=== PATIENT | female | born 1960 | race Caucasian/White ===

== ENCOUNTER → 2017-05-25 | Outpatient (CLI) | payer OTHER ==
[2017-05-25 17:59] LABS: ALBUMIN/GLOBULIN RATIO 1.1 (1.0-1.7); CALCIUM 9.4 mg/dL (8.5-10.1); CREATININE 0.8 mg/dL (0.6-1.0); GFR 74.5; POTASSIUM 4.2 mmol/L (3.5-5.1); TOTAL BILIRUBIN 0.3 mg/dL (0.2-1.0); TOTAL PROTEIN 7.7 g/dL (6.4-8.2)
== END | disposition home or self-care (01) ==
LOC: SPEC 17:23
PROVIDERS: ATTEND Nurse Practitioner
DX: I10 Essential (primary) hypertension (principal)
CPT/HCPCS: 36415; 80053; 80061

== ENCOUNTER → 2018-05-05 | Outpatient (CLI) | payer OTHER ==
--- NOTE | 2018-05-05 18:27 | RAD ---
Right foot, 3 views, 05/05/2018: HISTORY: Fall, pain No foot fracture or dislocation is identified. There is a moderate inferior calcaneal spur. There is mild diffuse soft tissue swelling. IMPRESSION: No acute bony abnormality is detected. Right ankle, 3 views, 05/05/2018: There is moderate diffuse soft tissue swelling. On one of the foot views a small calcific density is seen at the tip of the lateral malleolus. The appearance suggests an avulsion fracture of indeterminate age. No other fracture or dislocation is identified. IMPRESSION: Small cortical avulsion fracture at the tip of the lateral malleolus of indeterminate age. Electronically signed by: Richie Landrum MD (05/05/2018 6:24 PM) [facility]
== END | disposition home or self-care (01) ==
LOC: RAD 11:31
PROVIDERS: ATTEND Family Medicine
DX: S82.61XA Displaced fracture of lateral malleolus of right fibula, initial encounter for closed fracture (principal); M77.31 Calcaneal spur, right foot; R22.41 Localized swelling, mass and lump, right lower limb; X58.XXXA Exposure to other specified factors, initial encounter; Y93.89 Activity, other specified; Y92.89 Other specified places as the place of occurrence of the external cause; Y99.8 Other external cause status
CPT/HCPCS: 73610; 73630

== ENCOUNTER 2018-06-03 16:38 | Emergency (ER) | payer SELFPAY ==
[~2018-06-03] VITALS: Ht 162.6 cm; Wt 86.6 kg
--- NOTE | 2018-06-03 17:02 | PHYS DOC ---
Adult General Chief Complaint Chief Complaint: FOOT INJURY PAIN [facility] HPI Patient is a 58 year old female who presents with complaining of injury to right foot and ankle while she slipped on ice and twisted her right ankle while tried to prevent of a fall. Patient denies other injuries and loss of consciousness. Patient states the accident happened pain about 2 hours ago she took Celebrex and her pain improved. Patient states she had injury to the same ankle 2 weeks ago after a fall and had unremarkable x-ray. Review of Systems Review of Systems Constitutional: Denies fever or chills [] Eyes: Denies change in visual acuity, redness, or eye pain [] HENT: Denies nasal congestion or sore throat [] Respiratory: Denies cough or shortness of breath [] Cardiovascular: No additional information not addressed in HPI [] GI: Denies abdominal pain, nausea, vomiting, bloody stools or diarrhea [] : Denies dysuria or hematuria [] Musculoskeletal: Denies back pain, reports joint pain [] Integument: Denies rash or skin lesions [] Neurologic: Denies headache, focal weakness or sensory changes [] Endocrine: Denies polyuria or polydipsia [] All other systems were reviewed and found to be within normal limits, except as documented in this note. Physical Exam Physical Exam Constitutional: Well nourished, mild distress, non-toxic appearance. [] HENT: Normocephalic, atraumatic Eyes: PERRLA, EOMI, conjunctiva normal, no discharge. [] Neck: Normal range of motion, no tenderness, supple, no stridor. [] Cardiovascular:Heart rate regular rhythm, no murmur [] Lungs & Thorax: Bilateral breath sounds clear to auscultation [] Skin: Warm, dry, no erythema, no rash. [] Back: No tenderness, no CVA tenderness. [] Extremities: Right ankle without deformity, moderate edema and tenderness in lateral malleolus with painful range of motion, no neurovascular deficit Neurologic: Alert and oriented X 3, normal motor function, normal sensory function, no focal deficits noted. [] Psychologic: Affect anxious, judgement normal, mood normal. [] EKG EKG [] Radiology/Procedures Radiology/Procedures [][address] [address] IMAGING REPORT Signed PATIENT: RAPHAEL CROWDER: [id number] : 1960 LOCATION: ER AGE: 58 SEX: F EXAM STATUS: DEP ER ORD. PHYSICIAN: AYO GARCIA MD REASON: fall PROCEDURE: ANKLE RIGHT 3V Three-view right ankle radiographs 06/03/2018 CLINICAL HISTORY: Right ankle pain post fall. AP, lateral and oblique digital radiographs of the right ankle were obtained. An acute oblique fracture of the distal diaphysis of the right femur 2.5 cm superior to inferior aspect of the lateral malleolus of the right ankle. The distal fracture fragment is minimally displaced laterally. No additional fracture is seen. Moderate enthesophyte formation is seen involving the plantar aspect of the posterior right calcaneus. IMPRESSION: Acute fracture of the distal right fibula near the lateral malleolus of the right ankle. Electronically signed by: Rajiv Fried MD (06/04/2018 12:06 AM) [facility] DICTATED AND SIGNED BY: RAJIV FRIED MD DATE: 06/03/18 2652 CC: AYO GARCIA MD; CHIDI GALLARDO ~ Course & Med Decision Making Course & Med Decision Making Pertinent Imaging studies reviewed. (See chart for details) Evaluation of patient in ER showed 58-year-old female patient with complaining of injury to right foot and ankle after twisting her ankle for prevention of fall. Patient had tenderness and edema of lateral malleolus and x-ray showed lateral malleolus fracture. Patient did not want to have pain medication at arrival to ER but later on and asking for pain medication but for giving pain medication was able to fall asleep. Posterior leg splint was applied by DIETIST with good cap refill after insertion of splint and crutches provided and patient instructed to follow-up with fashion consultant sales orthopedic physician. Rohini Disclaimer Rohini Disclaimer This electronic medical record was generated, in whole or in part, using a voice recognition dictation system. Departure Departure: Impression: Primary Impression: Fracture of right ankle, lateral malleolus Disposition: 01 HOME, SELF-CARE (at 1731) Condition: IMPROVED Referrals: CHIDI GALLARDO (PCP) Patient Instructions: Ankle Fracture Additional Instructions: Follow-up up with fashion consultant sales orthopedic physician Dr. Segundo call at [phone] to make an appointment in 2-3 days Use crutches all the time Apply ice on the affected area Follow-up with your primary care physician in 3-5 days Return to ER if not getting better Scripts Hydrocodone Bit/Acetaminophen (NORCO 5-325 TABLET) 1 Each Tablet 1 TAB PO PRN Q6HRS PRN for PAIN, #14 TAB 0 Refills Prov: AYO GARCIA MD 06/03/18 Ibuprofen (IBUPROFEN) 800 Mg Tablet 1 TAB PO TID for pain, #30 TAB Prov: AYO GARCIA MD 06/03/18 AYO GARCIA MD Jun 03, 2018 17:02
[2018-06-03] MEDS ORDERED: HYDR-3165 PO (17:35)
[2018-06-03] MEDS ORDERED: IBUP800T19 PO (17:35)
[2018-06-03] MEDS ORDERED: HYDROcodone/APAP 5/325MG 1 TAB TABLET PO ONE (17:40)
[2018-06-03 17:48] VITALS: BP 164/92
--- NOTE | 2018-06-04 00:10 | RAD ---
Three-view right ankle radiographs 06/03/2018 CLINICAL HISTORY: Right ankle pain post fall. AP, lateral and oblique digital radiographs of the right ankle were obtained. An acute oblique fracture of the distal diaphysis of the right femur 2.5 cm superior to inferior aspect of the lateral malleolus of the right ankle. The distal fracture fragment is minimally displaced laterally. No additional fracture is seen. Moderate enthesophyte formation is seen involving the plantar aspect of the posterior right calcaneus. IMPRESSION: Acute fracture of the distal right fibula near the lateral malleolus of the right ankle. Electronically signed by: Rajiv Fried MD (06/04/2018 12:06 AM) [facility]
== END 2018-06-03 17:50 | disposition home or self-care (01) ==
LOC: ER 16:38
DX: S82.61XA Displaced fracture of lateral malleolus of right fibula, initial encounter for closed fracture (principal); W00.0XXA Fall on same level due to ice and snow, initial encounter; Y93.89 Activity, other specified; Y92.89 Other specified places as the place of occurrence of the external cause; Y99.8 Other external cause status
CPT/HCPCS: 29515; 73610; 99284

== ENCOUNTER → 2018-07-21 | Outpatient (CLI) | payer OTHER ==
[~2018-07-21] MED LIST: HYDR-3165 PO; IBUP800T19 PO
--- NOTE | 2018-07-21 15:24 | RAD ---
DATE: 07/21/2018 EXAM: DIGITAL SCREEN BILAT W/CAD HISTORY: Routine screening COMPARISON: 05/25/2016 This study was interpreted with the benefit of Computerized Aided Detection (CAD). Breast Density: SCATTERED The breast parenchyma shows scattered fibroglandular densities. Breast parenchyma level B. FINDINGS: There is an unchanged smooth nodule in the anteromedial aspect of the right breast. No new or enlarging breast densities are seen. No suspicious microcalcifications are evident. IMPRESSION: Stable mammograms without evidence of malignancy. BI-RADS CATEGORY: 2 BENIGN FINDING(S) RECOMMENDED FOLLOW-UP: 12M 12 MONTH FOLLOW-UP PQRS compliance statement: Patient information was entered into a reminder system with a target due date for the next mammogram. Mammography is a sensitive method for finding small breast cancers, but it does not detect them all and is not a substitute for careful clinical examination. A negative mammogram does not negate a clinically suspicious finding and should not result in delay in biopsying a clinically suspicious abnormality. "Our facility is accredited by the [employer] Mammography Program."
== END ==
LOC: MAMMO 12:37 → EDSTATUS 13:00
PROVIDERS: ATTEND Nurse Practitioner Family
DX: Z12.31 Encounter for screening mammogram for malignant neoplasm of breast (principal)
CPT/HCPCS: 77067

== ENCOUNTER → 2019-07-25 | Outpatient (CLI) | payer OTHER ==
--- NOTE | 2019-07-26 16:36 | RAD ---
DATE: 07/25/2019 EXAM: DIGITAL SCREEN BILAT W/CAD HISTORY: Routine screening COMPARISON: 05/25/2016, 07/21/2018, 05/06/2015 mammographic exams This study was interpreted with the benefit of Computerized Aided Detection (CAD). Breast Density: SCATTERED The breast parenchyma shows scattered fibroglandular densities. Breast parenchyma level B. FINDINGS: No suspicious calcification, mass, or distortion. IMPRESSION: Stable BI-RADS CATEGORY: 1 NEGATIVE RECOMMENDED FOLLOW-UP: 12M 12 MONTH FOLLOW-UP PQRS compliance statement: Patient information was entered into a reminder system with a target due date for the next mammogram. Mammography is a sensitive method for finding small breast cancers, but it does not detect them all and is not a substitute for careful clinical examination. A negative mammogram does not negate a clinically suspicious finding and should not result in delay in biopsying a clinically suspicious abnormality. "Our facility is accredited by the [employer] Mammography Program."
== END | disposition home or self-care (01) ==
LOC: MAMMO 10:06
PROVIDERS: ATTEND Family Medicine
DX: Z12.31 Encounter for screening mammogram for malignant neoplasm of breast (principal); N64.89 Other specified disorders of breast
CPT/HCPCS: 77067

== ENCOUNTER 2020-07-22 16:19 | Emergency (ER) | payer OTHER ==
[~2020-07-22] VITALS: Ht 162.6 cm; Wt 100.0 kg
[2020-07-22 16:30] VITALS: BP 164/60
--- NOTE | 2020-07-22 16:52 | PHYS DOC ---
Past History Past Medical History: Asthma, High Cholesterol, Hypertension, Kidney Infection, Other Past Surgical History: No Surgical History Alcohol Use: None Drug Use: Marijuana General Adult EDM: Chief Complaint: KNEE SWELLING HPI: HPI: Patient is a 52-year-old female who presents with right knee pain. Patient states that she has a history of arthritis in her knee but started having an increase in pain 1 week ago. Patient denies any known injury. Pain is aggravated by ambulation. Patient's been taking Celebrex and Tylenol today with little relief. Rating pain an 8 out of 10. Patient states that she spoke with her PCP this morning, Dr. Valerio Lucas, he advised her to come to the emergency room for pain control. Patient has a follow-up appointment with him on the of this month. Patient has history of arthritis, hypertension, asthma. Review of Systems: Review of Systems: Constitutional: Denies fever or chills Eyes: Denies change in visual acuity HENT: Denies nasal congestion or sore throat Respiratory: Denies cough or shortness of breath Cardiovascular: Denies chest pain or edema GI: Denies abdominal pain, nausea, vomiting, bloody stools or diarrhea : Denies dysuria Musculoskeletal: Denies back pain, reports right knee pain and swelling Integument: Denies rash Neurologic: Denies headache, focal weakness or sensory changes Endocrine: Denies polyuria or polydipsia Lymphatic: Denies swollen glands Psychiatric: Denies depression or anxiety Allergies: Allergies: Allergies Coded Allergies Type Severity Reaction Last Updated Verified loratadine Allergy Unknown 06/03/18 Yes prednisone Allergy Unknown 06/03/18 Yes Physical Exam: PE: Constitutional: Well developed, well nourished, no acute distress, non-toxic appearance. [] HENT: Normocephalic, atraumatic, bilateral external ears normal, oropharynx moist, no oral exudates, nose normal. [] Eyes: PERRLA, EOMI, conjunctiva normal, no discharge. [] Neck: Normal range of motion, no tenderness, supple, no stridor. [] Cardiovascular:Heart rate regular rhythm, no murmur [] Lungs & Thorax: Bilateral breath sounds clear to auscultation [] Abdomen: Bowel sounds normal, soft, no tenderness, no masses, no pulsatile mass es. [] Skin: Warm, dry, no erythema, no rash. [] Back: No tenderness, no CVA tenderness. [] Extremities: Right knee tenderness, no cyanosis, no clubbing, ROM intact, no edema. [] Neurologic: Alert and oriented X 3, normal motor function, normal sensory function, no focal deficits noted. [] Psychologic: Affect normal, judgement normal, mood normal. [] EKG: EKG: [] Radiology/Procedures: Radiology/Procedures: []XAM: Right knee, 4 views. HISTORY: Pain and swelling. COMPARISON: None. FINDINGS: 4 views of the right knee are obtained. There is mild medial compartment spurring. There is no fracture, dislocation or subluxation. There is a moderate joint effusion. IMPRESSION: 1. Mild medial compartment osteoarthritis of the right knee. 2. Moderate right knee effusion. Electronically signed by: Nisha Taylor MD (07/22/2020 5:10 PM) [id number] Heart Score: Risk Factors: Risk Factors: DM, Current or recent (<one month) smoker, HTN, HLP, family history of CAD, obesity. Risk Scores: Score 0 - 3: 2.5% MACE over next 6 weeks - Discharge Home Score 4 - 6: 20.3% MACE over next 6 weeks - Admit for Clinical Observation Score 7 - 10: 72.7% MACE over next 6 weeks - Early Invasive Strategies Course & Med Decision Making: Course & Med Decision Making Pertinent Labs and Imaging studies reviewed. (See chart for details) []Patient is a 52-year-old female who presents with right knee pain. Patient states that she has a history of arthritis in her knee but started having an increase in pain 1 week ago. Patient denies any known injury. Pain is aggravated by ambulation. Patient's been taking Celebrex and Tylenol today with little relief. Rating pain an 8 out of 10. Patient states that she spoke with her PCP this morning, Dr. Valerio Lucas, he advised her to come to the emergency room for pain control. Patient has a follow-up appointment with him on the of this month. Patient has history of arthritis, hypertension, asthma. X-ray right knee ordered. Hydrocodone given for pain control. Patient reports s ome relief with pain medication in the ED. Patient will follow RICE and has a knee brace at home she will use. X-ray shows Mild medial compartment osteoarthritis of the right knee.Moderate right knee effusion. Hydrocodone ordered for pain control. Patient is following up with her PCP on the . Dragon Disclaimer: Dragmelanie Disclaimer: This electronic medical record was generated, in whole or in part, using a voice recognition dictation system. Departure Departure: Impression: Primary Impression: Right knee pain Qualified Codes: M25.561 - Pain in right knee; G89.29 - Other chronic pain Disposition: DC HOME SELF CARE/HOMELESS Condition: GOOD Referrals: LALITHA GABRIEL MD (PCP) Patient Instructions: Knee Pain, [id number] Additional Instructions: You were seen in the emergency room today for right knee pain and swelling. X- ray of your right knee was ordered. Xray showed Mild medial compartment osteoarthritis of the right knee and Moderate right knee effusion. I have written you a prescription for hydrocodone for pain relief. Written instructions for RICE. You may also take ibuprofen [id number] for added pain control. Keep your appointment with Dr. Valerio Lucas on the for further evaluation. Please return to the emergency room with worsening symptoms or concerns. EMERGENCY DEPARTMENT GENERAL DISCHARGE INSTRUCTIONS Thank you for coming to [facility] (ED) today and trusting us with you care. We trust that you had a positivie experience in our Emergency Department. If you wish to speak to the department management, you may call the director at [phone]. YOUR FOLLOW UP INSTRUCTIONS ARE FOLLOWS: 1. Do you have a private Doctor? If you do not have a private doctor, please ask for a resource list of physicians or clinics that may be able to assist you with follow up care. 2. The Emergency Physician has interpreted your x-rays. The X-Ray specialist will also review them. If there is a change in the findings, you will be notified in 48 hours when at all possible. 3. A lab test or culture has been done, your results will be reviewed and you will be notified if you need a change in treatment. ADDITIONAL INSTRUCTIONS AND INFORMATION: 1. Your care today has been supervised by a physician who is specially trained in emergency care. Many problems require more than one evaluation for a complete diagnosis and treatment. We recommend that you schedule your follow up appointment as recommended to ensure complete treatment of you illness or injury. If you are unable to obtain follow up care and continue to have a problem, or if your condition worsens, we recommend that you return to the ED. 2. We are not able to safely determine your condition over the phone nor are we able to give sound medical advice over the phone. For these safety reasons, if you call for medical advice we will ask you to come to the ED for further evaluation. 3. If you have any questions regarding these discharge instructions please call the ED at [phone]. SAFETY INFORMATION: In the interest of safety, wellness, and injury prevention; we encourage you to wear your sealbelt, if you smoke; quite smoking, and we encourage family to use a protective helmet for bicycling and other sporting events that present an increased risk for head injury. IF YOUR SYMPTOMS WORSEN OR NEW SYMPTOMS DEVELOP, OR YOU HAVE CONCERNS ABOUT YOUR CONDITION; OR IF YOUR CONDITION WORSENS WHILE YOU ARE WAITING FOR YOUR FOLLOW UP APPOINTMENT; EITHER CONTACT YOUR PRIMARY CARE DOCTOR, THE PHYSICIAN WHOSE NAME AND NUMBER YOU WERE GIVEN, OR RETURN TO THE ED IMMEDIATELY. Scripts Hydrocodone Bit/Acetaminophen (HYDROCODONE-APAP 5-325 ) 1 Each Tablet 1 TAB PO PRN Q6HRS PRN for PAIN, #20 TAB 0 Refills Prov: BETO ELAINE APRN 07/22/20 BETO ELAINE APRN Jul 22, 2020 16:52
[2020-07-22] MEDS ORDERED: HYDROcodone/APAP 5/325MG 1 TAB TABLET PO ONE (17:00)
--- NOTE | 2020-07-22 17:13 | RAD ---
EXAM: Right knee, 4 views. HISTORY: Pain and swelling. COMPARISON: None. FINDINGS: 4 views of the right knee are obtained. There is mild medial compartment spurring. There is no fracture, dislocation or subluxation. There is a moderate joint effusion. IMPRESSION: 1. Mild medial compartment osteoarthritis of the right knee. 2. Moderate right knee effusion. Electronically signed by: Nisha Taylor MD (07/22/2020 5:10 PM) [id number]
[2020-07-22] MEDS ORDERED: HYDR-2155 PO (17:45)
== END 2020-07-22 18:00 | disposition home or self-care (01) ==
LOC: ER 16:19
DX: M25.561 Pain in right knee (principal); G89.29 Other chronic pain; R22.41 Localized swelling, mass and lump, right lower limb; J45.909 Unspecified asthma, uncomplicated; E78.00 Pure hypercholesterolemia, unspecified; I10 Essential (primary) hypertension; M19.90 Unspecified osteoarthritis, unspecified site; Z88.8 Allergy status to other drugs, medicaments and biological substances
CPT/HCPCS: 73564; 99283

== ENCOUNTER → 2020-08-06 | Outpatient (CLI) | payer OTHER ==
[2020-07-22 16:30] VITALS: BP 164/60
[~2020-08-06] MED LIST changes: +HYDR-2155 PO
--- NOTE | 2020-08-06 15:48 | RAD ---
DATE: 08/06/2020 12:39 PM EXAM: DIGITAL SCREEN BILAT W/CAD HISTORY: Screening COMPARISON: 07/25/2019 Bilateral full field craniocaudal and mediolateral oblique images were obtained using digital technique. This study was interpreted with the benefit of Computerized Aided Detection (CAD). FINDINGS: Breast Density: SCATTERED The breast parenchyma shows scattered fibroglandular densities. Breast parenchyma level B No suspicious masses, microcalcifications or architectural distortion is present to suggest malignancy in either breast. The visualized axillae are unremarkable. IMPRESSION: No mammographic evidence of malignancy. BI-RADS CATEGORY: 1 NEGATIVE RECOMMENDED FOLLOW-UP: 12M 12 MONTH FOLLOW-UP Annual screening mammography is recommended, unless clinically indicated sooner based on symptoms or change in physical exam. PQRS compliance statement: Patient information was entered into a reminder system with a target due date for the next mammogram. Mammography is a sensitive method for finding small breast cancers, but it does not detect them all and is not a substitute for careful clinical examination. A negative mammogram does not negate a clinically suspicious finding and should not result in delay in biopsying a clinically suspicious abnormality. "Our facility is accredited by the [employer] Mammography [employer]."
== END ==
LOC: MAMMO 11:06
PROVIDERS: ATTEND Family Medicine
DX: Z12.31 Encounter for screening mammogram for malignant neoplasm of breast (principal)
CPT/HCPCS: 77067

== ENCOUNTER → 2021-08-26 | Outpatient (CLI) | payer OTHER ==
--- NOTE | 2021-08-26 14:03 | RAD ---
EXAMINATION: MG 2D BILAT SCREENING CLINICAL HISTORY: Screening mammogram TECHNIQUE: Digital craniocaudal and mediolateral oblique views of the bilateral breasts. COMPARISON: 08/06/2020, 07/25/2019, 07/21/2018, 05/16/2016, 05/06/2015 BREAST COMPOSITION: There are scattered areas of fibroglandular density. FINDINGS: No evidence of suspicious mass, calcifications, or areas of architectural distortion. IMPRESSION: No mammographic evidence of malignancy. BI-RADS ASSESSMENT: Category 1: Negative RECOMMENDATION: Return for routine bilateral screening mammogram in one year. PQRS compliance statement - Patient information was entered into a reminder system with a target due date for the next mammogram. "Our facility is accredited by the [employer] Mammography Program." Electronically signed by: Narciso Sanders DO (08/26/2021 2:00 PM) [id number]
== END ==
LOC: MAMMO 11:12
PROVIDERS: ATTEND Family Medicine
DX: Z12.31 Encounter for screening mammogram for malignant neoplasm of breast (principal)
CPT/HCPCS: 77067